=== PATIENT | male | born 1960 | race Caucasian/White ===

== ENCOUNTER 2018-03-25 13:49 | Emergency (ER) | payer MEDICAID ==
[~2018-03-25] VITALS: Ht 177.8 cm; Wt 81.6 kg
[2018-03-25 14:55] VITALS: BP 123/78
--- NOTE | 2018-03-25 16:44 | Emergency Room Report ---
History of Present Illness General Chief Complaint: Lower Extremity Injury Source: EMS Present Illness HPI This patient left prior to evaluation by medical provider. Requested to leave - AMA Allergies: Coded Allergies: No Known Allergies (Unverified , 03/25/18) Nursing Documentation-[facility] Past Medical History: No History, Except For Hx Diabetes: Yes Physical Exam Vital Signs Date Time Temp Pulse Resp B/P (MAP) Pulse Ox O2 Delivery O2 Flow Rate FiO2 03/25/18 13:47 98.1 85 20 123/78 99 Room Air 98.1 Medical Decision Making PA Attestation Dr. Allen is my supervising Physician whom patient management has been discussed with. Diagnostic Impression: Primary Impression: Injury of lower extremity ER Course This patient left prior to evaluation by medical provider. Requested to leave - AMA Last Vital Signs Date Time Temp Pulse Resp B/P (MAP) Pulse Ox O2 Delivery O2 Flow Rate FiO2 03/25/18 14:55 98.1 20 123/78 99 Room Air 98.1 03/25/18 13:47 85 Disposition: AGAINST MEDICAL ADVICE Condition: Unknown Referrals: [facility],REFERRING (PCP) Nan Quintanilla March 25, 2018 16:44
== END 2018-03-25 15:26 | disposition left against medical advice (07) ==
LOC: EDBD 13:49 → EMR 15:01
DX: S89.92XA Unspecified injury of left lower leg, initial encounter (principal); V18.0XXA Pedal cycle driver injured in noncollision transport accident in nontraffic accident, initial encounter; Y93.55 Activity, bike riding; Y92.410 Unspecified street and highway as the place of occurrence of the external cause; E11.9 Type 2 diabetes mellitus without complications
CPT/HCPCS: 99282